=== PATIENT | female | born 1980 | race Caucasian/White ===

== ENCOUNTER 2019-02-10 10:52 | Inpatient (IN) | payer OTHER ==
[~2019-02-10 10:52] MED LIST: OXYTOCIN 30 UNITS/LR 500 ML BAG IV
[2019-02-10] MEDS ORDERED: LACTATED RINGER'S 1,000 ML IV ×2 (12:12)
[2019-02-10 12:21] LABS: ADD MAN DIFF? NO
[2019-02-10 12:23] LABS: WHITE BLOOD COUNT 8.1 10^3/ul (4.8-10.8)
[2019-02-10 12:23] LABS: BASOPHIL # 0.1 10^3/ul (0.0-0.1); BASOPHILS % 0.6 % (0.0-2.0); EOSINOPHILS # 0.2 10^3/ul (0.0-0.5); EOSINOPHILS % 2.6 % (0.0-7.0); HEMATOCRIT 38.9 % (37.0-47.0); HEMOGLOBIN 13.3 g/dl (12.0-16.0); LYMPHOCYTES # 1.9 10^3/ul (0.8-2.9); LYMPHOCYTES % 23.1 % (15.0-51.0); MEAN CORPUSCULAR HEMOGLOBIN 30.7 pg (29.0-33.0); MEAN CORPUSCULAR HGB CONC 34.2 g/dl (32.0-37.0); MEAN CORPUSCULAR VOLUME 89.8 fl (82.0-101.0); MEAN PLATELET VOLUME 11.5 fl (7.4-10.4); MONOCYTE # 0.6 10^3/ul (0.3-0.9); MONOCYTES % 7.7 % (0.0-11.0); NEUTROPHIL # 5.2 10^3/ul (1.6-7.5); NEUTROPHILS % 64.8 % (39.0-77.0); PLATELET COUNT 160 10^3/UL (140-415); RED BLOOD COUNT 4.33 10^6/ul (4.20-5.40); RED CELL DISTRIBUTION WIDTH 13.2 % (11.5-14.5)
[2019-02-10 12:27] LABS: INR 0.86; PROTIME 11.8 Sec (11.9-14.9); PT RATIO 0.9
[2019-02-10 12:28] LABS: PARTIAL THROMBOPLASTIN TIME 27.3 Sec (23.0-35.0)
[2019-02-10] MEDS ORDERED: OXYTOCIN 30 UNITS/LR 500 ML IV ×3 (12:30→14:30)
[2019-02-10] MEDS ORDERED: CARBOPROST 250 MCG INJ IM ×2 (12:30→14:30)
[2019-02-10] MEDS ORDERED: LIDOCAINE 1% (MPF) 30 ML INJ INJ (12:30)
[2019-02-10] MEDS ORDERED: METHYLERGONOVINE 0.2 MG INJ IM ×2 (12:30→14:30)
[2019-02-10] MEDS: CEFAZOLIN 2 GM/50 ML (PMX) 50 ML IVPB (12:30)
[2019-02-10] MEDS ORDERED: MISOPROSTOL 200 MCG TAB PR ×2 (12:30→14:30)
[2019-02-10 13:01] LABS: HEPATITIS B SURFACE ANTIGEN NEGATIVE (NEGATIVE)
[2019-02-10] MEDS ORDERED: morphine SULFATE/PF (10 MG/10 ML) INJ (14:24)
[2019-02-10] MEDS ORDERED: OXYTOCIN 10 UNIT INJ (14:24)
[2019-02-10] MEDS ORDERED: ONDANSETRON 4 MG INJ (14:24)
[2019-02-10] MEDS ORDERED: OXYCODONE/ACETAMINOPHEN (5/325) TAB PO (14:30)
[2019-02-10] MEDS ORDERED: NACL 0.9% 3 ML SYG IV (14:30)
[2019-02-10] MEDS ORDERED: DIPHENHYDRAMINE 50 MG INJ IV (16:00)
[2019-02-10] MEDS ORDERED: NALOXONE (0.4 MG/ML) INJ IV (16:00)
[2019-02-10] MEDS ORDERED: ONDANSETRON 4 MG INJ IV (16:00)
[2019-02-10] MEDS: OXYTOCIN 30 UNITS/LR 500 ML IV ×2 (16:58→20:55)
[2019-02-10] MEDS: KETOROLAC 30 MG INJ IV (17:28)
[2019-02-10 20:55] LABS: RAPID PLASMA REAGIN NONREACTIVE (NR)
[2019-02-10] MEDS: IBUPROFEN 800 MG TAB PO (21:55)
[2019-02-11] MEDS: morphine 2 MG INJ IV (04:18)
[2019-02-11] MEDS: IBUPROFEN 800 MG TAB PO ×3 (06:00→21:35)
[2019-02-11] MEDS: LACTATED RINGER'S 1,000 ML IV ×3 (06:22→21:29)
[2019-02-11 08:33] LABS: ADD MAN DIFF? NO
[2019-02-11 08:36] LABS: WHITE BLOOD COUNT 8.7 10^3/ul (4.8-10.8)
[2019-02-11 08:36] LABS: BASOPHILS % 0.2 % (0.0-2.0); EOSINOPHILS # 0.1 10^3/ul (0.0-0.5); EOSINOPHILS % 0.9 % (0.0-7.0); HEMATOCRIT 32.4 % (37.0-47.0); HEMOGLOBIN 10.7 g/dl (12.0-16.0); LYMPHOCYTES # 1.8 10^3/ul (0.8-2.9); LYMPHOCYTES % 20.1 % (15.0-51.0); MEAN CORPUSCULAR HEMOGLOBIN 30.1 pg (29.0-33.0); MEAN PLATELET VOLUME 11.5 fl (7.4-10.4); MONOCYTE # 0.7 10^3/ul (0.3-0.9); MONOCYTES % 7.7 % (0.0-11.0); NEUTROPHIL # 6.1 10^3/ul (1.6-7.5); NEUTROPHILS % 70.3 % (39.0-77.0); PLATELET COUNT 124 10^3/UL (140-415); RED BLOOD COUNT 3.56 10^6/ul (4.20-5.40); RED CELL DISTRIBUTION WIDTH 13.2 % (11.5-14.5)
[2019-02-11] MEDS: LANOLIN HPA 1 PKT TOP (15:18)
[2019-02-12] MEDS: LACTATED RINGER'S 1,000 ML IV (05:00)
[2019-02-12] MEDS: IBUPROFEN 800 MG TAB PO ×3 (05:18→21:34)
[2019-02-12] MEDS: LANOLIN HPA 1 PKT TOP (08:40)
[2019-02-12] MEDS: OXYCODONE/ACETAMINOPHEN (5/325) TAB PO (12:05)
[2019-02-13] MEDS: OXYCODONE/ACETAMINOPHEN (5/325) TAB PO ×2 (01:14→11:12)
[2019-02-13] MEDS: IBUPROFEN 800 MG TAB PO ×2 (05:52→13:32)
[2019-02-13] MEDS: DIPHTH/TET/ACEL PERTUSS (ADULT) 0.5 ML VIAL IM* (09:00)
[2019-02-13] MEDS: DOCUSATE SODIUM 100 MG CAP PO (13:32)
== END 2019-02-13 17:44 | disposition home or self-care (01) | DRG 788 ==
LOC: L-D 10:52 → PP1 18:20
PROVIDERS: Obstetrics & Gynecology
PROC: 10D00Z1 Extraction of Products of Conception, Low, Open Approach (ICD-10-PCS; principal; 2019-02-10 12:30)
DX: O32.1XX0 Maternal care for breech presentation, not applicable or unspecified (principal); O99.824 Streptococcus B carrier state complicating childbirth; Z3A.39 39 weeks gestation of pregnancy; Z37.0 Single live birth
CPT/HCPCS: 85025; 85610; 85730; 86592; 86850; 86900; 86901; 87340